=== PATIENT | female | born 1960 | race African-American/Black ===

== ENCOUNTER 2020-08-08 13:40 | Emergency (ER) | payer SELFPAY ==
[~2020-08-08] VITALS: Ht 154.9 cm; Wt 70.9 kg
[2020-08-08 13:59] VITALS: BP 140/49
== END 2020-08-08 15:32 | disposition home or self-care (01) ==
LOC: ER 15:10
DX: R05 Cough (principal); R06.02 Shortness of breath; I10 Essential (primary) hypertension; Z88.2 Allergy status to sulfonamides; Z88.8 Allergy status to other drugs, medicaments and biological substances
CPT/HCPCS: 71045; 93005; 99283